=== PATIENT | female | born 1955 | race Caucasian/White ===

== ENCOUNTER 2017-01-21 12:52 | Day surgery (SDC) | payer OTHER, BC ==
[~2017-01-21] VITALS: Ht 165.1 cm; Wt 103.0 kg
[~2017-01-21 12:52] MED LIST: ACTONEL35 MG PO; ALENDRONATE SOD70 MG PO; AMPHETAMINE SAL10 MG PO; ASPIRIN81 M1 PO; AZATHIOPRINE50 MG PO; Aspirin E.C. PO; BENICAR40 MG PO; BISACODYL5 MG PO; BYSTOLIC10 MG PO; Bystolic PO; CARDURA2 M1 PO; CARDURA4 MG PO; CATAPRES0.1 MG PO; CITRACAL + D C1 EACH PO; CITRACAL + D E1 EACH PO; CLONIDINE HCL0.1 MG PO; CRANBERRY; CRANBERRY450 M1 PO; CYMBALTA30 MG PO; Cardura PO; Catapres PO; DAILY VITAMIN1 EAC8 PO; DIAZEPAM5 MG PO; DULOXETINE HCL60 MG PO; Dulcolax PO; ENDOCET 5-3251 EACH PO; Fosamax PO; GAMUNEX-C1 GM/10 ML IV; Hydrodiuril,Oretic,E PO; IMURAN100 MG PO; IRON325 MG PO; Imuran PO; KLOR-CON 1010 ME1 PO; LASIX40 MG PO; LINZESS145 MCG PO; LO-DOSE ASPIRIN81 M1 PO; LOVENOX40 MG/0.4 SC; LYRICA100 MG PO; Lasix PO; Lovenox SC; MULTIVITAMIN1 EAC1 PO; MULTIVITAMIN1 EAC2 PO; NEXIUM40 MG PO; NIZORAL 2% CREA15 GM TP; NORVASC5 MG PO; Norvasc PO; OMEPRAZOLE40 M1 PO; Ocean Nasal 0.65% BOTH NARES; Oscal 250 w/Vitamin PO; PERCOCET 5/31 TABLET PO; PREDNISONE10 M2 PO; PREDNISONE5 MG PO; PRILOSEC40 MG PO; Percocet 5/325,Endoc PO; PriLOSEC PO; SIMVASTATIN20 MG PO; Senokot,Sennagen PO; THERAGRAN1 TABLET PO; TYLENOL EXTRA500 MG PO; Tylenol Regular Stre PO; VALIUM5 MG PO; Valium PO; ZANTAC150 MG PO; [UNRECOGNIZED DRUG - OTHER] IV; [UNRECOGNIZED DRUG - OTHER] IV; predniSONE PO
[2017-01-21 13:46] VITALS: BP 120/79
[2017-01-21 17:45] VITALS: BP 106/71
[2017-01-21 19:08] VITALS: BP 196/83
== END 2017-01-21 19:16 | disposition home or self-care (01) ==
LOC: SDC 12:52
PROC: 0PU43JZ Supplement Thoracic Vertebra with Synthetic Substitute, Percutaneous Approach (ICD-10-PCS; principal; 2017-01-21)
DX: S22.059A Unspecified fracture of T5-T6 vertebra, initial encounter for closed fracture (principal); Z98.1 Arthrodesis status; I10 Essential (primary) hypertension; K21.9 Gastro-esophageal reflux disease without esophagitis; E78.5 Hyperlipidemia, unspecified; M35.00 Sjogren syndrome, unspecified; R26.2 Difficulty in walking, not elsewhere classified; M60.9 Myositis, unspecified; Z79.52 Long term (current) use of systemic steroids; Z79.82 Long term (current) use of aspirin; Z88.5 Allergy status to narcotic agent
CPT/HCPCS: 71010; 93005; J0330; J0690; J1100; J1885; J2405; J3010

== ENCOUNTER 2017-04-01 17:53 | Inpatient (IN) | payer OTHER, BC ==
[~2017-04-01] VITALS: Ht 165.1 cm; Wt 111.9 kg
[2017-04-01 19:10] LABS: HEMATOCRIT 31.6 % (36.0-46.0); MCH 30.1 PG (29.0-34.0); MCHC 35.4 G/DL (30.0-36.0); MEAN PLAT.VOLUME 8.7 uM^3 (9.5-12.4); RBC DIS.WIDTH-SD 43.2 % (39-53); RED BLOOD COUNT 3.72 M/uL (3.80-5.20); WHITE BLOOD COUNT 5.5 K/uL (4.1-10.2)
[2017-04-01 19:16] LABS: MCV 84.9 FL (83-99)
[2017-04-01 19:45] LABS: PLATELET COUNT 126 K/uL (156-360)
[2017-04-01] MEDS ORDERED: BYSTOLIC20 MG PO (20:05)
[2017-04-01] MEDS ORDERED: ZANTAC300 MG PO (20:08)
[2017-04-01] MEDS ORDERED: K-DUR20 MEQ PO (20:08)
[2017-04-01] MEDS ORDERED: EFFEXOR37.5 MG PO (20:14)
[2017-04-01] MEDS ORDERED: VISINE A.C300 DROP/1 BOTH EYES (20:16)
[2017-04-01] MEDS ORDERED: NEO-SYNEPHRINE-15 M1 BOTH NARES (20:16)
[2017-04-01] MEDS ORDERED: LASIX40 MG PO (20:17)
[2017-04-02] VITALS (7 sets, daily range): BP systolic 98–142; BP diastolic 51–72
[2017-04-02 00:27] LABS: CHLORIDE 79 mEq/L (99-109)
[2017-04-02 00:30] LABS: ANION GAP 8 MEQ/L (2-14)
[2017-04-02 00:33] LABS: GFR ESTIMATE (CALCULATED) > 59 mL/min/; GLUCOSE 174 mg/dL (70-99); POTASSIUM 3.4 mEq/L (3.7-5.4); SODIUM 115 mEq/L (136-147)
[2017-04-02 00:34] LABS: UREA NITROGEN (BUN) 17 mg/dL (9-23)
[2017-04-02 01:17] LABS: TROP-I INTERPRETATION NEGATIVE; TROPONIN-I < 0.01 ng/mL (0.0-0.30)
[2017-04-02 04:01] LABS: ADD MIUA? YES; BILIRUBIN NEGATIVE; BLOOD MODERATE; COLOR YELLOW ((YELLOW)); GLUCOSE (STRIP) NEGATIVE; KETONES NEGATIVE; LEUKOCYTES LARGE; NITRITE POSITIVE; PROTEIN (STRIP) NEGATIVE; SPECIFIC GRAVITY 1.006 (1.000-1.030); UROBILINOGEN 0.2 MG/DL (0.2-1.0)
[2017-04-02 04:11] LABS: BACTERIA RARE /HPF; EPITHELIAL CELLS NONE SEEN /HPF; MUCUS NONE SEEN /LPF; RED BLOOD CELLS 0-5 /HPF (0-5); UCUL ADDED? NO
[2017-04-02 04:50] LABS: HEMATOCRIT 31.9 % (36.0-46.0); MCH 30.4 PG (29.0-34.0); MCHC 35.7 G/DL (30.0-36.0); MCV 85.1 FL (83-99); MEAN PLAT.VOLUME 9.2 uM^3 (9.5-12.4); PLATELET COUNT 146 K/uL (156-360); RBC DIS.WIDTH-SD 43.5 % (39-53); RED BLOOD COUNT 3.75 M/uL (3.80-5.20); WHITE BLOOD COUNT 5.8 K/uL (4.1-10.2)
[2017-04-02 05:07] LABS: CHLORIDE 82 mEq/L (99-109); POTASSIUM 3.3 mEq/L (3.7-5.4)
[2017-04-02 05:10] LABS: ANION GAP 5 MEQ/L (2-14); CHLORIDE 82 mEq/L (99-109); POTASSIUM 3.3 mEq/L (3.7-5.4)
[2017-04-02 05:12] LABS: GFR ESTIMATE (CALCULATED) > 59 mL/min/
[2017-04-02 05:13] LABS: ANION GAP 5 MEQ/L (2-14); UREA NITROGEN (BUN) 16 mg/dL (9-23)
[2017-04-02 05:15] LABS: GFR ESTIMATE (CALCULATED) > 59 mL/min/
[2017-04-02 05:16] LABS: GLUCOSE 69 mg/dL (70-99); GLUCOSE 70 mg/dL (70-99); SODIUM 118 mEq/L (136-147); UREA NITROGEN (BUN) 15 mg/dL (9-23)
[2017-04-02 05:17] LABS: SODIUM 117 mEq/L (136-147)
[2017-04-02 05:19] LABS: TROP-I INTERPRETATION NEGATIVE; TROPONIN-I 0.02 ng/mL (0.0-0.30)
[2017-04-02 09:41] LABS: CHLORIDE 82 mEq/L (99-109); POTASSIUM 3.7 mEq/L (3.7-5.4); SODIUM 121 mEq/L (136-147)
[2017-04-02 09:42] LABS: GLUCOSE 82 mg/dL (70-99)
[2017-04-02 09:44] LABS: ANION GAP 7 MEQ/L (2-14)
[2017-04-02 09:46] LABS: GFR ESTIMATE (CALCULATED) > 59 mL/min/
[2017-04-02 09:47] LABS: UREA NITROGEN (BUN) 13 mg/dL (9-23)
[2017-04-02 13:07] LABS: ANION GAP 6 MEQ/L (2-14); CHLORIDE 81 MEQ/L (99-109); GFR ESTIMATE (CALCULATED) > 59 mL/min/; GLUCOSE 79 mg/dL (70-99); POTASSIUM 3.3 MEQ/L (3.7-5.4); SAMPLE HEMOLYSIS CHECK 0; SAMPLE ICTERIC CHECK 0; SAMPLE LIPEMIA CHECK 0; UREA NITROGEN (BUN) 15 mg/dL (9-23)
[2017-04-02 13:09] LABS: SODIUM 114 MEQ/L (136-147)
[2017-04-02 15:54] LABS: ANION GAP 6 MEQ/L (2-14); CHLORIDE 82 MEQ/L (99-109); GFR ESTIMATE (CALCULATED) > 59 mL/min/; GLUCOSE 88 mg/dL (70-99); POTASSIUM 3.4 MEQ/L (3.7-5.4); SAMPLE HEMOLYSIS CHECK 0; SAMPLE ICTERIC CHECK 0; SAMPLE LIPEMIA CHECK 0; SODIUM 116 MEQ/L (136-147); UREA NITROGEN (BUN) 15 mg/dL (9-23)
[2017-04-02 19:54] LABS: ANION GAP 8 MEQ/L (2-14); CHLORIDE 82 MEQ/L (99-109); GFR ESTIMATE (CALCULATED) > 59 mL/min/; POTASSIUM 3.3 MEQ/L (3.7-5.4); SAMPLE HEMOLYSIS CHECK 0; SAMPLE ICTERIC CHECK 0; SAMPLE LIPEMIA CHECK 0; UREA NITROGEN (BUN) 16 mg/dL (9-23)
[2017-04-02 20:09] LABS: GLUCOSE 155 mg/dL (70-99); SODIUM 116 MEQ/L (136-147)
[2017-04-02 23:27] LABS: CHLORIDE 87 mEq/L (99-109); SODIUM 121 mEq/L (136-147)
[2017-04-02 23:28] LABS: POTASSIUM 4.4 mEq/L (3.7-5.4)
[2017-04-02 23:30] LABS: ANION GAP 6 MEQ/L (2-14); GLUCOSE 103 mg/dL (70-99)
[2017-04-02 23:32] LABS: GFR ESTIMATE (CALCULATED) > 59 mL/min/
[2017-04-02 23:33] LABS: UREA NITROGEN (BUN) 16 mg/dL (9-23)
[2017-04-03 03:15] LABS: CHLORIDE 90 mEq/L (99-109); POTASSIUM 4.5 mEq/L (3.7-5.4); SODIUM 123 mEq/L (136-147)
[2017-04-03 03:17] LABS: GLUCOSE 113 mg/dL (70-99)
[2017-04-03 03:18] LABS: ANION GAP 6 MEQ/L (2-14)
[2017-04-03 03:21] LABS: GFR ESTIMATE (CALCULATED) > 59 mL/min/
[2017-04-03 03:22] LABS: UREA NITROGEN (BUN) 15 mg/dL (9-23)
[2017-04-03 05:22] VITALS: BP 165/73
[2017-04-03 08:30] VITALS: BP 132/61
[2017-04-03 09:29] LABS: ANION GAP 5 MEQ/L (2-14); CHLORIDE 89 MEQ/L (99-109); GFR ESTIMATE (CALCULATED) > 59 mL/min/; GLUCOSE 113 mg/dL (70-99); POTASSIUM 3.9 MEQ/L (3.7-5.4); SAMPLE HEMOLYSIS CHECK 0; SAMPLE ICTERIC CHECK 0; SAMPLE LIPEMIA CHECK 0; SODIUM 122 MEQ/L (136-147); UREA NITROGEN (BUN) 11 mg/dL (9-23)
[2017-04-03 11:58] VITALS: BP 131/58
[2017-04-03 12:01] LABS: ANION GAP 8 MEQ/L (2-14); CHLORIDE 90 MEQ/L (99-109); GFR ESTIMATE (CALCULATED) > 59 mL/min/; GLUCOSE 85 mg/dL (70-99); POTASSIUM 3.7 MEQ/L (3.7-5.4); SAMPLE HEMOLYSIS CHECK 0; SAMPLE ICTERIC CHECK 0; SAMPLE LIPEMIA CHECK 0; SODIUM 124 MEQ/L (136-147); UREA NITROGEN (BUN) 12 mg/dL (9-23)
[2017-04-03 12:03] VITALS: BP 109/57
[2017-04-03 15:55] LABS: CHLORIDE 91 mEq/L (99-109); POTASSIUM 4.2 mEq/L (3.7-5.4); SODIUM 122 mEq/L (136-147)
[2017-04-03 15:58] LABS: ANION GAP 6 MEQ/L (2-14); GLUCOSE 115 mg/dL (70-99)
[2017-04-03 16:00] LABS: GFR ESTIMATE (CALCULATED) > 59 mL/min/
[2017-04-03 16:01] LABS: UREA NITROGEN (BUN) 12 mg/dL (9-23)
[2017-04-03 16:05] VITALS: BP 144/64
[2017-04-03 19:16] LABS: CHLORIDE 93 mEq/L (99-109); SODIUM 126 mEq/L (136-147)
[2017-04-03 19:18] LABS: GLUCOSE 103 mg/dL (70-99)
[2017-04-03 19:19] LABS: ANION GAP 5 MEQ/L (2-14)
[2017-04-03 19:22] LABS: GFR ESTIMATE (CALCULATED) > 59 mL/min/
[2017-04-03 19:23] LABS: UREA NITROGEN (BUN) 12 mg/dL (9-23)
[2017-04-03 19:30] VITALS: BP 142/80
[2017-04-03 23:47] LABS: CHLORIDE 92 mEq/L (99-109); POTASSIUM 4.1 mEq/L (3.7-5.4); SODIUM 123 mEq/L (136-147)
[2017-04-03 23:49] LABS: GLUCOSE 136 mg/dL (70-99)
[2017-04-03 23:50] LABS: ANION GAP 6 MEQ/L (2-14)
[2017-04-03 23:53] LABS: GFR ESTIMATE (CALCULATED) > 59 mL/min/
[2017-04-03 23:54] LABS: UREA NITROGEN (BUN) 13 mg/dL (9-23)
[2017-04-04] VITALS (7 sets, daily range): BP systolic 127–202; BP diastolic 62–82
[2017-04-04 04:21] LABS: CHLORIDE 94 mEq/L (99-109); POTASSIUM 3.9 mEq/L (3.7-5.4); SODIUM 126 mEq/L (136-147)
[2017-04-04 04:24] LABS: ANION GAP 4 MEQ/L (2-14)
[2017-04-04 04:27] LABS: GFR ESTIMATE (CALCULATED) > 59 mL/min/; GLUCOSE 79 mg/dL (70-99); UREA NITROGEN (BUN) 10 mg/dL (9-23)
[2017-04-04 08:48] LABS: ANION GAP 5 MEQ/L (2-14); CHLORIDE 93 MEQ/L (99-109); GFR ESTIMATE (CALCULATED) > 59 mL/min/; GLUCOSE 82 mg/dL (70-99); POTASSIUM 3.4 MEQ/L (3.7-5.4); SAMPLE HEMOLYSIS CHECK 0; SAMPLE ICTERIC CHECK 0; SAMPLE LIPEMIA CHECK 0; SODIUM 128 MEQ/L (136-147); UREA NITROGEN (BUN) 7 mg/dL (9-23)
[2017-04-04 13:06] LABS: ANION GAP 9 MEQ/L (2-14); CHLORIDE 95 MEQ/L (99-109); GFR ESTIMATE (CALCULATED) > 59 mL/min/; GLUCOSE 87 mg/dL (70-99); POTASSIUM 3.6 MEQ/L (3.7-5.4); SAMPLE HEMOLYSIS CHECK 0; SAMPLE ICTERIC CHECK 0; SAMPLE LIPEMIA CHECK 0; SODIUM 130 MEQ/L (136-147); UREA NITROGEN (BUN) 7 mg/dL (9-23)
[2017-04-04 15:05] LABS: CHLORIDE 97 mEq/L (99-109); POTASSIUM 3.9 mEq/L (3.7-5.4); SODIUM 131 mEq/L (136-147)
[2017-04-04 15:08] LABS: ANION GAP 6 MEQ/L (2-14)
[2017-04-04 15:10] LABS: GFR ESTIMATE (CALCULATED) > 59 mL/min/
[2017-04-04 15:11] LABS: UREA NITROGEN (BUN) 10 mg/dL (9-23)
[2017-04-04 16:25] LABS: GLUCOSE 144 mg/dL (70-99)
[2017-04-04 20:20] LABS: CHLORIDE 97 mEq/L (99-109); POTASSIUM 4.2 mEq/L (3.7-5.4); SODIUM 132 mEq/L (136-147)
[2017-04-04 20:23] LABS: ANION GAP 6 MEQ/L (2-14)
[2017-04-04 20:26] LABS: GFR ESTIMATE (CALCULATED) > 59 mL/min/; GLUCOSE 97 mg/dL (70-99)
[2017-04-04 20:27] LABS: UREA NITROGEN (BUN) 11 mg/dL (9-23)
[2017-04-04 23:28] LABS: CHLORIDE 96 mEq/L (99-109); POTASSIUM 4.5 mEq/L (3.7-5.4); SODIUM 130 mEq/L (136-147)
[2017-04-04 23:29] LABS: GLUCOSE 68 mg/dL (70-99)
[2017-04-04 23:31] LABS: ANION GAP 7 MEQ/L (2-14)
[2017-04-04 23:33] LABS: GFR ESTIMATE (CALCULATED) > 59 mL/min/
[2017-04-04 23:34] LABS: UREA NITROGEN (BUN) 10 mg/dL (9-23)
[2017-04-05 00:52] VITALS: BP 190/76
[2017-04-05 01:58] VITALS: BP 130/68
[2017-04-05 03:58] LABS: CHLORIDE 98 mEq/L (99-109); POTASSIUM 3.9 mEq/L (3.7-5.4); SODIUM 132 mEq/L (136-147)
[2017-04-05 04:00] LABS: GLUCOSE 80 mg/dL (70-99)
[2017-04-05 04:01] LABS: ANION GAP 5 MEQ/L (2-14)
[2017-04-05 04:04] LABS: GFR ESTIMATE (CALCULATED) > 59 mL/min/
[2017-04-05 04:05] LABS: UREA NITROGEN (BUN) 8 mg/dL (9-23)
[2017-04-05 04:43] VITALS: BP 170/66
[2017-04-05 07:36] VITALS: BP 145/67
[2017-04-05 09:01] LABS: ANION GAP 7 MEQ/L (2-14); CHLORIDE 96 MEQ/L (99-109); GFR ESTIMATE (CALCULATED) > 59 mL/min/; GLUCOSE 69 mg/dL (70-99); POTASSIUM 3.8 MEQ/L (3.7-5.4); SAMPLE HEMOLYSIS CHECK 0; SAMPLE ICTERIC CHECK 0; SAMPLE LIPEMIA CHECK 0; SODIUM 133 MEQ/L (136-147); UREA NITROGEN (BUN) 7 mg/dL (9-23)
[2017-04-05 11:21] VITALS: BP 136/60
[2017-04-05 11:59] LABS: HEMATOCRIT 34.6 % (36.0-46.0); MCH 29.7 PG (29.0-34.0); MCHC 32.9 G/DL (30.0-36.0); MCV 90.1 FL (83-99); MEAN PLAT.VOLUME 9.7 uM^3 (9.5-12.4); PLATELET COUNT 187 K/uL (156-360); RBC DIS.WIDTH-CV 15.4 % (11.8-14.6); RBC DIS.WIDTH-SD 50.7 % (39-53); RED BLOOD COUNT 3.84 M/uL (3.80-5.20); WHITE BLOOD COUNT 8.4 K/uL (4.1-10.2)
[2017-04-05 12:38] LABS: ANION GAP 7 MEQ/L (2-14); CHLORIDE 96 MEQ/L (99-109); GFR ESTIMATE (CALCULATED) > 59 mL/min/; GLUCOSE 72 mg/dL (70-99); POTASSIUM 3.7 MEQ/L (3.7-5.4); SAMPLE HEMOLYSIS CHECK 0; SAMPLE ICTERIC CHECK 0; SAMPLE LIPEMIA CHECK 0; SODIUM 133 MEQ/L (136-147); UREA NITROGEN (BUN) 8 mg/dL (9-23)
== END 2017-04-05 14:56 | disposition home health service (06) | DRG 644 ==
LOC: EME 17:53 → 4EAST 20:08 → EDOF 20:08 → 4EAST 23:59
PROVIDERS: Emergency Medicine; Hospitalist; Internal Medicine Nephrology; Physician Assistant
DX: E22.2 Syndrome of inappropriate secretion of antidiuretic hormone (principal); I10 Essential (primary) hypertension; D32.9 Benign neoplasm of meninges, unspecified; M33.20 Polymyositis, organ involvement unspecified; N31.9 Neuromuscular dysfunction of bladder, unspecified; M79.7 Fibromyalgia; G89.29 Other chronic pain; E66.3 Overweight; Z68.39 Body mass index [BMI] 39.0-39.9, adult; E87.6 Hypokalemia
CPT/HCPCS: 80048; 80048 91; 80069; 81003; 83930; 83935; 84295; 84300; 84484; 85027; 99281; 99285; J0360; J1650; J7030; J7500; J7512

== ENCOUNTER → 2017-05-26 | Outpatient (CLI) | payer MEDICARE, BC ==
[~2017-05-26] MED LIST changes: +BYSTOLIC20 MG PO; +EFFEXOR37.5 MG PO; +K-DUR20 MEQ PO; +NEO-SYNEPHRINE-15 M1 BOTH NARES; +VISINE A.C300 DROP/1 BOTH EYES; +ZANTAC300 MG PO
== END | disposition home or self-care (01) ==
LOC: CDC 13:46
DX: N20.0 Calculus of kidney (principal); R94.31 Abnormal electrocardiogram [ECG] [EKG]
CPT/HCPCS: 93000